=== PATIENT | male | born 1935 | race Caucasian/White ===

== ENCOUNTER → 2016-07-15 | Outpatient (CLI) | payer MEDICARE ==
[2016-07-15 13:06] LABS: CREATININE SERUM 1.7 MG/DL (0.60-1.30)
== END ==
LOC: RAD 12:35
PROVIDERS: ATTEND Internal Medicine Cardiovascular Disease
DX: I73.9 Peripheral vascular disease, unspecified (principal); M79.604 Pain in right leg; M79.605 Pain in left leg
CPT/HCPCS: 36415; 82565; 84520

== ENCOUNTER → 2016-07-21 | Outpatient (CLI) | payer MEDICARE, BC ==
[~2016-07-21] MED LIST: CATHETER FLUSH 10 ML SYR IV PRN; IOHEXOL 350 MG/ML 150 ML (OMNIPAQUE 350) VIAL IV ONE; NS 100 ML (IVPB) BAG IV ONE
[2016-07-21 11:43] LABS: CREATININE SERUM 1.48 MG/DL (0.60-1.30)
--- NOTE | 2016-07-21 14:48 | Diagnostic Imaging Report ---
INDICATION: Leg pain. History of atherosclerotic disease. Claudication symptoms. COMPARISON: None. TECHNIQUE: Noncontrast CT of the abdomen and pelvis was performed. Postcontrast CTA of the abdomen, pelvis, and bilateral lower extremities was also performed. Multiplanar and 3-D reformats were also performed and reviewed. FINDINGS: Included views of the lung bases are clear. CTA abdomen: There is moderate diffuse calcified aortic and arterial atherosclerosis. Bulky calcifications are identified at the origins of the celiac trunk and superior mesenteric artery. These, however, do not appear to be hemodynamically significant based on evaluation of the reformats. There are single renal arteries, bilaterally. Scattered bulky calcifications of the bilateral renal arteries are identified. There is bulky eccentric calcification at the origin of the left renal artery. This, however does not appear to be hemodynamically significant. There is no significant stenosis on the right. There is normal opacification of the inferior mesenteric artery. There is no evidence of dissection or focal stenosis of the aorta. There is no aneurysmal dilatation. Hyperdense material is present within the bilateral renal collecting systems on the noncontrast exam. This has the appearance of residual contrast possibly from recent study. Renal or ureteral calculi are felt to be less likely. There is a simple-appearing cyst on the right. No solid enhancing renal mass-type lesions are seen. There is no hydroureteronephrosis or other evidence of obstruction on either side. The spleen, pancreas, adrenal glands, and liver have a normal appearance. Small bowel loops are nondistended. Normal appendix cannot be adequately identified, but is reportedly surgically absent. There is no loculated fluid collection, free fluid, nor free air within the abdomen. No abnormal mesenteric or retroperitoneal adenopathy is seen. Bony structures show age-related degenerative changes, but no acute abnormalities. CTA pelvis: There is moderate calcified atherosclerotic disease of the aortic bifurcation, as well as the arteries of the pelvis. There is, however, no focal hemodynamically significant stenosis extending from the aortic bifurcation to the distal external iliac arteries, bilaterally. Prostate is moderately enlarged measuring 7.5 x 5.4 cm. Urinary bladder is unopacified. No calculi are seen within the urinary bladder. There is no loculated fluid collection, free fluid, nor free air within the pelvis. No abnormal lymph nodes are seen. Bony structures show age-related degenerative changes, but no acute abnormalities. CTA lower extremities: On the right, there appears to be at least 50% stenosis of the more proximal right common femoral artery (image 136, series 7). There also appears to be significant atherosclerotic disease of the bifurcation of the right common femoral artery (image 145, series 7). Evaluation of the lumen of the right superficial femoral artery is somewhat suboptimal given the small nature of the vessel, but there is moderate calcified arteriosclerosis with potential hemodynamically significant stenosis, anteriorly (image 169, series 7). There is opacification of the posterior tibial artery to its plantar bifurcation. There may be areas of significant stenosis, proximally. Anterior tibial and peroneal arteries are grossly unremarkable. On the left, there is probable significant focal hemodynamically significant stenosis of the distal right common femoral artery just proximal to its bifurcation (image 141, series 7). There is moderate scattered calcified atherosclerosis of the superficial femoral artery with potential significant stenosis, distally (image 222, series 7). Popliteal artery has a normal appearance. There is normal trifurcation of the popliteal artery. The posterior tibial artery is well opacified to its plantar bifurcation. The peroneal and anterior tibial arteries appear to be well opacified throughout. Osseous structures show age-related degenerative changes. No acute bony abnormalities are seen. Overlying soft tissue structures are unremarkable. IMPRESSION: 1. Moderate calcified aortic and arteriosclerosis throughout the abdomen, pelvis, and bilateral lower extremities. 2. No evidence of focal stenosis, aneurysm, nor dissection of the abdominal aorta. 3. Potential hemodynamically significant stenoses of the bilateral common femoral, bilateral superficial femoral, and right posterior tibial arteries. Further evaluation with Doppler exam or conventional angiogram is recommended. 4. Hyperdense material within the bilateral renal collecting systems on the noncontrast exam. Correlation with recent contrast-enhanced study is recommended. 5. Prostatomegaly. Dictated by: Dictated on workstation # [id number]
== END ==
LOC: RAD 11:11
PROVIDERS: ATTEND Internal Medicine Cardiovascular Disease
DX: I77.1 Stricture of artery (principal); I70.0 Atherosclerosis of aorta; N40.0 Benign prostatic hyperplasia without lower urinary tract symptoms; I73.89 Other specified peripheral vascular diseases
CPT/HCPCS: 36415; 75635; 82565; 84520

== ENCOUNTER → 2016-07-25 | Outpatient (CLI) | payer MEDICARE, BC ==
--- NOTE | 2016-07-26 14:32 | ECHOCARDIOGRAPHY REPORT ---
DATE OF SERVICE: 07/25/2016 TWO DIMENSIONAL ECHOCARDIOGRAM MEASUREMENT: LVID end diastolic 3.4. IVS thickness 1.2. LVPW thickness 1.1. Left atrial diameter 3.1. Ejection fraction 60%. FINDINGS: 1. Technical quality is good. 2. The left ventricle is normal in size with normal contractility, systolic function appeared to be normal, estimated ejection fraction 60%. 3. The left atrium is normal in size. No clot or thrombus were seen within the left atrium. 4. The right atrium and right ventricle are normal in size. No clot or thrombus were seen within the right side. 5. Mitral valve is normal in morphology with mild mitral regurgitation noted by color Doppler flow. No mitral valve prolapse. No mitral valve stenosis. 6. Aortic valve is heavily calcified, still opening and closing normally, Doppler across the aortic valve estimated the peak gradient of 7 mmHg, mean gradient of 5 mmHg. No significant aortic valve stenosis or regurgitation was seen. 7. Tricuspid valve is normal in morphology with mild tricuspid regurgitation noted by color Doppler flow. Doppler across the tricuspid valve estimated pulmonary artery pressure of 7+ right atrial pressure. 8. Pulmonic valve is functioning normally. 9. No pericardial effusion. CONCLUSION: 1. Normal left ventricular size and systolic function. Estimated ejection fraction 60%. 2. Mild mitral and tricuspid regurgitation. 3. Heavily calcified aortic valve with aortic valve sclerosis, no aortic stenosis. 4. Estimated pulmonary artery pressure of 15 mmHg. Job ID: [id number] DocumentID: [id number] Dictated Date: 07/26/2016 10:21:28 End Touching Machine Operator Date: 07/26/2016 10:59:41 Dictated By: ELIA SCHROEDER MD
== END ==
LOC: CARD 13:11 → EDUNIT# 14:00
PROVIDERS: ATTEND Internal Medicine Cardiovascular Disease
DX: I73.9 Peripheral vascular disease, unspecified (principal); Z82.49 Family history of ischemic heart disease and other diseases of the circulatory system; E78.2 Mixed hyperlipidemia; E66.9 Obesity, unspecified; I08.3 Combined rheumatic disorders of mitral, aortic and tricuspid valves
CPT/HCPCS: 93306

== ENCOUNTER → 2016-08-08 | Outpatient (CLI) | payer MEDICARE, BC ==
[~2016-08-08] MED LIST changes: -IOHEXOL 350 MG/ML 150 ML (OMNIPAQUE 350) VIAL IV ONE; -NS 100 ML (IVPB) BAG IV ONE
[2016-08-08 08:00] VITALS: BP 186/53
[2016-08-08 08:03] VITALS: BP 177/60
[2016-08-08 08:05] VITALS: BP 199/57
[2016-08-08 08:10] VITALS: BP 159/61
--- NOTE | 2016-08-09 10:29 | STRESS TEST ---
DATE OF SERVICE: 08/08/2016 EXERCISE MYOVIEW STRESS TEST REPORT REFERRING PHYSICIAN: There is no local physician. Baseline heart rate is 66. Baseline blood pressure 153/67. Baseline EKG is sinus rhythm with no ischemic changes. SUMMARY: The patient was injected with 10.38 mCi of technetium-99 Myoview and the resting images were obtained. Then, he started exercising with the baseline heart rate, blood pressure and EKG mentioned above. At minute 5, the patient was injected with 31.0 mCi of technetium-99 Myoview. The patient was able to finish a total of 6 minutes on standard Keaton protocol, achieving maximum heart rate of 136 which is 98% of maximum expected heart rate. With peak exercise level blood pressure was 203/50. EKG was showing minimal undiagnostic changes. During recovery, heart rate and blood pressure returned to baseline. EKG returned to baseline. The resting and stress images were reviewed and compared in the short axis, horizontal long axis, and vertical long axis views. Review of the images showed diaphragmatic attenuation with no significant ischemia or infarction on SPECT images. SSS is 5, SDS is 5, TID value 0.91. On the gated images, the left ventricle appeared to be in normal size with normal contractility. Calculated ejection fraction 68%. CONCLUSION: 1. Fair exercise tolerance. A total of 6 minutes on standard Keaton protocol, total of 7 METS achieving 98% of maximum expected heart rate. 2. Hypertensive response to exercise, returned to baseline during recovery. 3. Minimal nondiagnostic EKG changes with exercise returned to baseline during recovery. 4. Diaphragmatic attenuation with typical male pattern. No significant ischemia or infarction on SPECT images. 5. Normal left ventricular size with normal contractility. Calculated ejection fraction is 68%. Job ID: [id number] DocumentID: [id number] Dictated Date: 08/08/2016 11:23:10 Gold Leaf Laborer Date: 08/08/2016 14:29:58 Dictated By: ELIA SCHROEDER MD
== END ==
LOC: CARD 06:44 → EDUNIT# 08-20 09:45
PROVIDERS: ATTEND Internal Medicine Cardiovascular Disease
DX: I73.9 Peripheral vascular disease, unspecified (principal); E78.2 Mixed hyperlipidemia; E66.9 Obesity, unspecified; Z82.49 Family history of ischemic heart disease and other diseases of the circulatory system
CPT/HCPCS: 78452; 93017

== ENCOUNTER 2016-08-13 07:52 | Day surgery (SDC) | payer MEDICARE, BC ==
[~2016-08-13] VITALS: Ht 177.8 cm; Wt 91.6 kg
[2016-08-13] VITALS (14 sets, daily range): BP systolic 125–170; BP diastolic 51–79
[2016-08-13] MEDS ORDERED: HEParin (CATH LAB) 2,000 ML IV ONE (07:56)
[2016-08-13] MEDS ORDERED: NS IV 1000 ML 1,000 ML ONE (07:56)
--- OUTSIDE RECORDS SUMMARY | 2016-08-13 07:57 | XMS REPORT ---
Demographics Preferred Language Greenlandic Marital Status Never Church Affiliation Unknown Race Other Race Ethnic Group Unknown Author Author Linda Guillermo [facility] Address [address] [place], [place] [id number] Care Team Providers Care Promotions Officer Name Role Phone Linda Guillermo PCP Unavailable Allergies and Adverse Reactions Name Reaction Notes No known drug allergy Plan of Treatment Planned Activity Comments Planned Date Planned Time Plan/Goal Culture + susceptibility 07/03/2016 12:00 AM Medications Active Name Start Date Estimated Completion Date SIG Comments sertraline 25 mg oral tablet take 1 tablet (25 mg) by oral route once daily rosuvastatin 20 mg oral tablet take 1 tablet (20 mg) by oral route once daily metoprolol tartrate oral Takes half a tab in the morning and half a tab in the evening losartan 50 mg oral tablet take 1 tablet (50 mg) by oral route once daily Problem List Not available. Vital Signs Date Time BP-Sys(mm[Hg] BP-Brielle(mm[Hg]) HR(bpm) RR(rpm) Temp WT HT HC BMI BSA BMI Percentile O2 Sat(%) 07/03/2016 8:43:00 AM 150 mmHg 68 mmHg 55 bpm 18 rpm 97.9 F 210 lbs 70 in 30.13 kg/m2 2.17 m2 97 % Social History Name Description Comments Tobacco Former smoker Alcohol Use - Rare Caffeine Current every day Active but no formal exercise History of Procedures Not available. Results Summary Not available. History Of Immunizations Not available. History of Past Illness Name Date of Onset Comments Urinary dribbling Jul 03 2016 8:51AM Urinary urgency Jul 03 2016 8:51AM Payers Not available. History of Encounters Visit Date Visit Type Provider 07/03/2016 Office visit Linda Guillermo MD
--- OUTSIDE RECORDS SUMMARY | 2016-08-13 07:57 | XMS REPORT | Continuity of Care Document ---
Author Author [facility] Organization [facility] Address Unknown Phone Unavailable Allergies Medications Problems Procedures Results Encounters ACCT No. Visit Date/Time Discharge Status Pt. Type Provider Facility Loc./Unit Complaint [id number] 07/01/2016 08:48:02 ACT Unknown
--- OUTSIDE RECORDS SUMMARY | 2016-08-13 07:57 | XMS REPORT ---
Author Author Linda Guillermo Organization [facility] Address [address] [place], [place] [phone] Care Team Providers Care Forensic Specialist Name Role Phone Linda Guillermo PCP Unavailable Allergies and Adverse Reactions Name Reaction Notes No known drug allergy Plan of Treatment Not available. Medications Active Name Start Date Estimated Completion [...] (50 mg) by oral route once daily Bactrim DS 800-160 mg oral tablet 07/07/2016 08/13/2016 Take 1 tab PO BID x 7days and then one tab PO QD after a supper for 30 days Problem List Not available. Vital Signs Date [...] but no formal exercise History of Procedures Date Ordered Description Order Status 07/03/2016 12:00 AM MICROBIOLOGY PROCEDURE Reviewed Results Summary Not available. History Of Immunizations Not available. History of Past Illness Name Date of Onset Comments Urinary dribbling Jul 03 2016 8:51AM Urinary urgency Jul 03 2016 8:51AM Payers Insurance Name Company Name Plan Name Plan Number Policy Number Policy Group Number Start Date Medicare Part B Medicare [facility] [id number] N/A BCBS Bcbs [facility] [id number] N/A History of Encounters Visit Date Visit Type Provider 07/03/2016 Office visit Linda Guillermo MD
--- OUTSIDE RECORDS SUMMARY | 2016-08-13 07:57 | XMS REPORT | Clinical Summary ---
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 Nirav Poe MD Peripheral vascular disease, unspecified Medication List Medication Instructions Start Date Stop Date Generic Name NDC Status Provider Patient Instruction ADULT ASPIRIN EC LOW STRENGTH 81 MG ORAL TBEC 1 daily ASPIRIN 27943096454 Active Naima Nguyen, RMA Active LOSARTAN POTASSIUM 50 MG ORAL TABS 1 daily LOSARTAN POTASSIUM 77743794199 Active Naima Nguyen, RMA Active SERTRALINE HCL 25 MG ORAL TABS 1 daily SERTRALINE HCL 12791274241 Active Naima Nguyen RMA Active FLOMAX 0.4 MG ORAL CAPS 1 daily TAMSULOSIN HCL 00211327858 Active Naima Nguyen, RMA Active METOPROLOL TARTRATE 25 MG ORAL TABS 1/2 tab bid METOPROLOL TARTRATE 64369754218 Active Naima Nguyen, RMA Active CRESTOR 20 MG ORAL TABS 1 daily ROSUVASTATIN CALCIUM 00791529736 Active Naima Nguyen, RMA Active Vital Signs Date Name Value Unit Range Description blood pressure, diastolic - 8462-4 60 mm[Hg] BP guerrero blood pressure, systolic - 8480-6 134 mm[Hg] BP sys height E&M - 8302-2 70 [in_us] Bdy height pulse rate E&M - 8867-4 60 /min Heart rate temperature E&M 97.3 [degF] Body temperature weight E&M - 3141-9 213 [lb_av] Weight Measured Encounters Code Encounter Date Provider Facility [id number] Level 3 New Patient 15:39:51 CDT Nirav Poe MD [facility]
--- OUTSIDE RECORDS SUMMARY | 2016-08-13 07:57 | XMS REPORT ---
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 Bacterial urinary infection Active 08/04/2016 Vital Signs Date Time BP-Sys(mm[Hg] BP-Brielle(mm[Hg]) HR(bpm) RR(rpm) Temp WT HT HC BMI BSA BMI Percentile O2 Sat(%) 07/31/2016 6:57:00 AM 128 mmHg 62 mmHg 52 bpm 18 rpm 97.6 F 206 lbs 70 in 29.56 kg/m2 2.15 m2 98 % 07/03/2016 8:43:00 AM 150 mmHg 68 mmHg 55 bpm 18 rpm 97.9 F 210 lbs 70 in 30.1316 kg/m 2.169 m 97 % Social History Name Description Comments Tobacco Former smoker Alcohol Use - Rare Caffeine Current every day Active but no formal exercise History of Procedures Date Ordered Description Order Status 07/03/2016 12:00 AM MICROBIOLOGY PROCEDURE Reviewed Results Summary Not available. History Of Immunizations Not available. History of Past Illness Name Date of Onset Comments Retention of urine 08/04/2016 Adenofibromatous hypertrophy of prostate 08/04/2016 Bacterial urinary infection 08/04/2016 Urinary dribbling Jul 03 2016 8:51AM Urinary urgency Jul 03 2016 8:51AM Hematuria Jul 31 2016 3:26PM Urinary tract infection, site not specified Aug 04 2016 12:40PM Adenofibromatous hypertrophy of prostate Aug 04 2016 12:40PM Retention of urine Aug 04 2016 12:40PM Payers Insurance Name Company Name Plan Name Plan Number Policy Number Policy Group Number Start Date Medicare Part B Medicare Of [place] [id number] N/A BCBS Bcbs [facility] [id number] N/A History of Encounters Visit Date Visit Type Provider 07/31/2016 Office visit V Pedro Guillermo MD 07/03/2016 Office visit V Pedro Guillermo MD
--- OUTSIDE RECORDS SUMMARY | 2016-08-13 07:57 | XMS REPORT ---
Author Author Linda Guillermo Organization [facility] Address [address] [place], [place] [phone] Care Team Providers Care Network Lead Name Role Phone Linda Guillermo PCP Unavailable [...] Number Start Date Medicare Part B Medicare [facility] [id number] N/A BCBS Bcbs [facility] [id number] N/A History of Encounters Visit Date Visit Type Provider 07/03/2016 Office visit Linda Guillermo MD
--- OUTSIDE RECORDS SUMMARY | 2016-08-13 07:58 | XMS REPORT ---
Author Author Linda Guillermo Organization [facility] Address [address] [place], [place] [phone] Care Team Providers Care Brass Finisher Name Role Phone Linda Guillermo PCP Unavailable [...] Date Medicare Part B Medicare Of [place] [id number] N/A BCBS Bcbs [facility] [id number] N/A History of Encounters Visit Date Visit Type Provider 07/31/2016 Office visit V Pedro Guillermo MD 07/03/2016 Office visit V Pedro Guillermo MD
--- OUTSIDE RECORDS SUMMARY | 2016-08-13 07:58 | XMS REPORT ---
Author Author Linda Guillermo Organization [facility] Address [address] [facility] [address] [place], [place] [phone] Care Team Providers Care Livestock Brands Inspector Name Role Phone Linda Guillermo PCP Unavailable [...] 2016 8:51AM Hematuria Jul 31 2016 3:26PM Payers Insurance Name Company Name Plan Name Plan Number Policy Number Policy Group Number Start Date Medicare Part B Medicare Of [place] [id number] N/A [facility] [id number] N/A History of Encounters Visit Date Visit Type Provider 07/31/2016 Office visit V Pedro Guillermo MD 07/03/2016 Office visit V Pedro Guillermo MD
[2016-08-13] MEDS ORDERED: NS IV 1000 ML 1,000 ML IV SCH (08:03)
[2016-08-13 08:31] LABS: MEAN PLATELET VOLUME 10.6 FL (7.4-10.4); RED BLOOD COUNT 4.45 10^6/uL (4.35-5.85); RED CELL DISTRIBUTION WIDTH 12.6 % (10.0-14.5); WHITE BLOOD COUNT 5.6 10^3/uL (4.3-11.0)
[2016-08-13 08:35] LABS: BILIRUBIN,URINE NEGATIVE (NEGATIVE); KETONES,URINE NEGATIVE (NEGATIVE); LEUKOCYTE ESTERASE ,URINE NEGATIVE (NEGATIVE); NITRITE,URINE NEGATIVE (NEGATIVE); PH,URINE 6 (5-9); PROTEIN,URINE NEGATIVE (NEGATIVE); UROBILINOGEN,URINE 1 MG/DL (NORMAL)
[2016-08-13 08:42] LABS: SQUAMOUS EPITHELIAL CELL,UR RARE /HPF; WBC,URINE RARE /HPF
--- NOTE | 2016-08-13 08:46 | Diagnostic Imaging Report ---
INDICATION: Peripheral vascular disease and hypertension. Frontal chest obtained at 8:33 a.m. FINDINGS: Heart and mediastinal silhouette are normal in appearance. The lungs are clear. There is no pneumothorax or pleural fluid. IMPRESSION: Negative chest. Dictated by: Dictated on workstation # [id number]
[2016-08-13 08:51] LABS: ALBUMIN 4.4 GM/DL (3.2-4.5); BILIRUBIN,TOTAL 0.7 MG/DL (0.1-1.0); CALCIUM 9.7 MG/DL (8.5-10.1); CREATININE SERUM 1.44 MG/DL (0.60-1.30); POTASSIUM 4.2 MMOL/L (3.6-5.0)
[2016-08-13] MEDS ORDERED: OMG1KC PO (09:27)
[2016-08-13] MEDS ORDERED: ROSU20TA PO (09:27)
[2016-08-13] MEDS ORDERED: ASPI-983 PO (09:27)
[2016-08-13] MEDS ORDERED: UBID200C16 PO (09:27)
[2016-08-13] MEDS ORDERED: METO-333 PO (09:27)
[2016-08-13] MEDS ORDERED: TAMS0.4C98 PO (09:27)
[2016-08-13] MEDS ORDERED: LOSA100T28 PO (09:27)
[2016-08-13] MEDS ORDERED: SERT50TA9 PO (09:27)
--- NOTE | 2016-08-13 09:52 | Cardiac Procedure Note-CS/ASA ---
Pre-Procedure Note Pre-Op Procedure Note H&P Reviewed The H&P was reviewed, patient examined and no changes noted. Date H&P Reviewed: Aug 13, 2016 Time H&P Reviewed: 09:51 Conscious Sedation Pre-Proced Time Reviewed: 09:51 ASA Class: 3 Airway Mallampati Classification: (bois forte appropriate class) I. II. III, IV Lungs Heart ASA score ASA 1: a normal healthy patient ASA 2: a patient with a mild systemic disease (mid diabetes, controlled hypertension, obesity x ASA 3: a patient with a severe systemic disease that limits activity (angina , COPD, prior Myocardial infarction) ASA 4: a patient with an incapacitating disease that is a constant threat to life (CHF, renal failure) ASA 5: a moribund patient not expected to survive 24 hrs. (ruptured aneurysm) ASA 6: a declared brain patient whose organs are being harvested. For emergent operations, add the letter E after the classification Grade 3 Sedation Plan: Analgesia, Amnesia, Plan communicated to team members, Discussed options with patient/fam, Discussed risks with patient/fam Note The patient is an appropriate candidate to undergo the planned procedure, sedation, and anesthesia. The patient immediately re-assessed prior to indication. ELIA SCHROEDER MD Aug 13, 2016 09:52
[2016-08-13] MEDS ORDERED: fentaNYL INJECTION 100 MCG/2 ML AMP ONE (09:54)
[2016-08-13] MEDS ORDERED: MIDAZOLAM 5 MG/5 ML (VERSED) VIAL ONE (09:54)
[2016-08-13] MEDS ORDERED: HEParin 1000 UNIT/ML (10ML VIAL) FOR BOLUS ONE (11:05)
[2016-08-13] MEDS ORDERED: NITROGLYCERIN DRIP 25 MG/D5W 250 ML IV ONE (11:20)
[2016-08-13] MEDS ORDERED: CLOPIDOGREL 300 MG (PLAVIX) TABLET PO ONE (11:41)
[2016-08-13] MEDS ORDERED: ASPIRIN 325 MG (5 GR) TABLET ONE (11:41)
[2016-08-13] MEDS ORDERED: PATIENT MAY USE OWN MEDS, ALL PO SCH (11:45)
--- NOTE | 2016-08-13 11:53 | Peripheral Report ---
Peripheral Report Physician (s)/College Or [employer] Faculty Member (s) Physician ELIA SCHROEDER MD Pre-Procedure Diagnosis Pre-Procedure Diagnosis: PAD Post-Procedure Note Procedure Start Date: Aug 13, 2016 Procedure Start Time: 11:00 Name of Procedure: Peripheral angiogram Angioplasty to TERMITE RENEWAL INSPECTOR, SFA with DCB Findings/Procedure Note BRIEF HISTORY: The patient is a 80 male admitted with peripheral arterial disease PROCEDURE NOTE: after x-ray the procedure to the patient all pros and cons were explained all questions were answered patient was placed on the cardiac catheterization laboratory. 6 Luxembourgish sheath was placed in right femoral artery, angiogram was done to the lower extremities and abdominal aorta. Runoff to the right lower except he was done through the sheath, then I did 2 separate runoff below the knee to reevaluate the peripheral arterial disease in the right lower chest. Pigtail catheter advanced to the abdominal aorta and abdominal aortogram was done. Then I removed it and used rim catheter for crossover advances to inquire then advanced the rim ended runoff to the left lower rigidity to the rim. Patient had severe peripheral arterial disease, I decided to proceed with pertains intervention. 5000 units of heparin were given. Exchange this sheath into 45 mm 7 Luxembourgish sheath, advanced to the left common femoral, ratio of the stork wire and facet part in the SFA. Then angiogram was done showing subtotal occlusion of the left common femoral artery and proximal left SFA has severe disease, I advanced Lutonix 7.060, inflated at that common femoral artery up to 7.25 for 3 minutes then I advanced it to the proximal SFA and put it at gentle inflation to 7 mm, given nitroglycerin, angiogram showed excellent result, still having 20 percent common femoral artery stenosis, 20 percent proximal SFA, the mid SFA has 50 percent stenosis, severe disease below the knee. I was not able to proceed with more compact intervention due to the underlying renal insufficiency, addendum of the procedure sheath was removed after exchanging it into 7 Luxembourgish short, Mynx device deployed hemostasis achieved FINDINGS: right lower extremity: Right SFA has mild disease, trifurcation is normal, anterior tibial artery has mild disease, severe tibial artery has severe disease. There is good flow down to the foot. Left lower extremity, subtotal occlusion of the left common femoral artery, balloon angioplasty using Lutonix 7.060 mm with excellent results, 20 percent residual stenosis. Severe stenosis at the proximal SFA, I used the same balloon with gentle inflation with good results, also 20 percent residual stenosis. Mid SFA has 50 percent stenosis, treated conservatively, below the trifurcation it appear to have moderate disease at the posterior tibial artery which will be evaluated at a later point. Abdominal aortogram: Normal abdominal aorta and bifurcation, mild atherosclerotic disease at the common iliac arteries. CONCLUSIONS: 1. Subtotal occlusion at the left TERMITE RENEWAL INSPECTOR, severe disease at the proximal SFA, balloon angioplasty using Lutonix 7.060 mm with excellent results, 20 percent residual stenosis in both arteries. 2. 50 percent mid left SFA, treated conservatively will be addressed at a later point 3. Posterior tibial on the left lower extremity has moderate severe disease will be addressed at a later point to limit the exposure to contrast 4. Mild to moderate disease at the right lower extremity, severe disease at the right posterior tibial artery, treated conservatively. 5. Mild disease at the abdominal aorta DISCUSSION AND RECOMMENDATIONS: patient was started on aspirin and Plavix. I will evaluate LEYLA. Planning for repeat intervention on the left lower extremity if needed with limiting the exposure to contrast. Anesthesia Type: Conscious Sedation Estimated blood loss (mL): 25 Contrast Amount: 90, Radiation 181 mGy Post-Procedure Diagnosis Post-operative diagnosis: Peripheral arterial disease Hypertension Hyperlipidemia Claudication ELIA SCHROEDER MD Aug 13, 2016 11:53
[2016-08-13] MEDS: NS IV 1000 ML 1,000 ML IV SCH ×2 (12:52→16:32)
[2016-08-13] MEDS ORDERED: TAMSULOSIN 0.4 MG PO SCH (18:00)
[2016-08-13] MEDS ORDERED: ASPIRIN E.C. 81 MG (ECOTRIN) TAB PO SCH (21:00)
[2016-08-13] MEDS ORDERED: ROSUVASTATIN 20 MG (CRESTOR) TABLET PO SCH (21:00)
[2016-08-13] MEDS ORDERED: OMEGA 3 (FISH OIL) 1000 MG CAP PO SCH (21:00)
[2016-08-13] MEDS ORDERED: meTOprolol TARTRATE 25 MG (LOPRESSOR) TABLET PO SCH (21:00)
[2016-08-14] VITALS: BP 137/56
[2016-08-14 04:00] VITALS: BP 131/69
[2016-08-14 04:07] LABS: MEAN PLATELET VOLUME 10.5 FL (7.4-10.4); RED BLOOD COUNT 3.79 10^6/uL (4.35-5.85); RED CELL DISTRIBUTION WIDTH 12.3 % (10.0-14.5); WHITE BLOOD COUNT 4.8 10^3/uL (4.3-11.0)
[2016-08-14 04:28] LABS: ANION GAP 10 MMOL/L (5-14); BLOOD UREA NITROGEN 17 MG/DL (7-18); BUN/CREATININE RATIO 17; CALCIUM 8.8 MG/DL (8.5-10.1); CARBON DIOXIDE 20 MMOL/L (21-32); CHLORIDE 110 MMOL/L (98-107); CREATININE SERUM 1.02 MG/DL (0.60-1.30); GFR ESTIMATED > 60; GLUCOSE 91 MG/DL (70-105); POTASSIUM 4.4 MMOL/L (3.6-5.0); SODIUM 140 MMOL/L (135-145)
--- NOTE | 2016-08-14 08:03 | Short Stay Summary ---
History of Present Illness History of Present Illness Reason for visit/HPI 80 years old gentleman admitted for peripheral arterial disease, had lower extremity pain, he was scheduled for peripheral angiogram Date of Admission August 13, 2016 Date of Discharge August 14, 2016 Time Seen by Provider: 08:01 Attending Physician Elia Rose MD Admitting Physician Radha,Local Physician Consult none Allergies and Home Medications Allergies Coded Allergies: No Known Drug Allergies (Unverified , 07/21/16) Home Medications Aspirin 81 Mg Tablet.dr, 81 MG PO BID, (Reported) Clopidogrel Bisulfate 75 Mg Tablet, 75 MG PO DAILY, #90 Ref 4 Prescribed by: ELIA RSOE on 08/14/16 0804 Losartan Potassium 100 Mg Tablet, 50 MG PO DAILY, (Reported) TAKES 1/2 (100MG) TABLET Metoprolol Tartrate 25 Mg Tablet, 12.5 MG PO BID, (Reported) TAKES 1/2 (25MG) TABLET [place] 3 Polyunsat Fatty Acids 1,000 Mg Cap, 1,000 MG PO HS, (Reported) Rosuvastatin Calcium 20 Mg Tablet, 20 MG PO DAILY, (Reported) Sertraline HCl 50 Mg Tablet, 25 MG PO DAILY, (Reported) TAKES 1/2 (50MG) TABLET Tamsulosin HCl 0.4 Mg Cap, 0.4 MG PO DAILY, (Reported) Ubidecarenone 200 Mg Capsule, 200 MG PO HS, (Reported) Past Jcuovnf-Cdwtgl-Lgodli Hx Patient Social History Marrital Status: Smoking Status: Former Smoker Type Used: Cigarettes Recent Foreign Travel: No Contact w/other who traveled: No Recent Infectious Disease Expo: No Immunizations Up To Date Date of Pneumonia Vaccine: Nov 19, 2015 Surgeries HX Surgeries: Yes Respiratory Hx Respiratory Disorders: No Cardiovascular Hx Cardiovascular Disorders: Yes Genitourinary Hx Genitourinary Disorders: No Gastrointestinal Hx Gastrointestinal Disorders: No Constitutional: other Physical Exam Vital Signs Vital Sign - Last 12Hours 08/13/16 08:37 Temp 97.1 Pulse 59 Resp 20 B/P (MAP) 170/70 Pulse Ox 99 Capillary Refill : Less Than 3 Seconds General Appearance: No Apparent Distress, WD/WN Eyes: Bilateral Eye EOMI, Bilateral Eye Normal Inspection, Bilateral Eye PERRL HEENT: PERRL/EOMI, TMs Normal, Normal ENT Inspection, Pharynx Normal Neck: Full Range of Motion, Normal Inspection, Non Tender, Supple, Carotid Bruit Respiratory: Chest Non Tender, Lungs Clear, Normal Breath Sounds, No Accessory Muscle Use, No Respiratory Distress Cardiovascular: Regular Rate, Rhythm, No Edema, No Gallop, No JVD, No Murmur, Normal Peripheral Pulses Gastrointestinal: Normal Bowel Sounds, No Organomegaly, No Pulsatile Mass, Non Tender, Soft Back: Normal Inspection, No CVA Tenderness, No Vertebral Tenderness Extremity: Normal Capillary Refill, Normal Inspection, Normal Range of Motion, Non Tender, No Calf Tenderness, No Pedal Edema Neurologic/Psychiatric: Alert, Oriented x3, No Motor/Sensory Deficits, Normal Mood/Affect Skin: Normal Color, Warm/Dry Lymphatic: No Adenopathy Short Stay Diagnosis Discharge Diagnosis-Short Stay Admission Diagnosis: peripheral arterial disease Claudication Hypertension Hyperlipidemia Final Discharge Diagnosis: peripheral arterial disease Claudication Hypertension Hyperlipidemia Conclusion Labs Laboratory Tests 08/13/16 08:20: White Blood Count 5.6, Red Blood Count 4.45, Hemoglobin 13.7, Hematocrit 41, Mean Corpuscular Volume 91, Mean Corpuscular Hemoglobin 31, Mean Corpuscular Hemoglobin Concent 34, Red Cell Distribution Width 12.6, Platelet Count 170, Mean Platelet Volume 10.6H, Prothrombin Time 13.0, INR Comment 1.0, Activated Partial Thromboplast Time 30, Urine Color YELLOW, Urine Clarity CLEAR, Urine pH 6, Urine Specific [place] 1.015L, Urine Protein NEGATIVE, Urine Glucose (UA) NEGATIVE, Urine Ketones NEGATIVE, Urine Nitrite NEGATIVE, Urine Bilirubin NEGATIVE, Urine Urobilinogen 1, Urine Leukocyte Esterase NEGATIVE, Urine RBC ( Auto) NEGATIVE, Urine RBC RARE, Urine WBC RARE, Urine Squamous Epithelial Cells RARE, Urine Crystals NONE, Urine Bacteria NEGATIVE, Urine Casts NONE, Urine Mucus NEGATIVE, Urine Culture Indicated NO, Sodium Level 141, Potassium Level 4.2, Chloride Level 106, Carbon Dioxide Level 25, Anion Gap 10, Blood Urea Nitrogen 22H, Creatinine 1.44H, Estimat Glomerular Filtration Rate 47, BUN/ Creatinine Ratio 15, Glucose Level 104, Calcium Level 9.7, Total Bilirubin 0.7, Aspartate Amino Transf (AST/SGOT) 49H, Alanine Aminotransferase (ALT/SGPT) 65H, Alkaline Phosphatase 80, Total Protein 8.0, Albumin 4.4, Triglycerides Level 78 , Cholesterol Level 119, LDL Cholesterol Direct 62, VLDL Cholesterol 16, HDL Cholesterol 36L 08/14/16 03:41: White Blood Count 4.8, Red Blood Count 3.79L, Hemoglobin 11.7L, Hematocrit 34L, Mean Corpuscular Volume 90, Mean Corpuscular Hemoglobin 31, Mean Corpuscular Hemoglobin Concent 34, Red Cell Distribution Width 12.3, Platelet Count 136, Mean Platelet Volume 10.5H, Sodium Level 140, Potassium Level 4.4, Chloride Level 110H, Carbon Dioxide Level 20L, Anion Gap 10, Blood Urea Nitrogen 17, Creatinine 1.02, Estimat Glomerular Filtration Rate > 60, BUN/Creatinine Ratio 17, Glucose Level 91, Calcium Level 8.8 Conclusion/Plan Peripheral arterial disease, complex intervention as described below: 1. Subtotal occlusion at the left SYSTEMS ACCOUNTANT, severe disease at the proximal SFA, balloon angioplasty using Lutonix 7.060 mm with excellent results, 20 percent residual stenosis in both arteries. 2. 50 percent mid left SFA, treated conservatively will be addressed at a later point 3. Posterior tibial on the left lower extremity has moderate severe disease will be addressed at a later point to limit the exposure to contrast 4. Mild to moderate disease at the right lower extremity, severe disease at the right posterior tibial artery, treated conservatively. 5. Mild disease at the abdominal aorta I will continue on current medication, start aspirin and Plavix again. Monitor lipids, monitor blood pressure ELIA ROSE MD Aug 14, 2016 08:03
[2016-08-14] MEDS ORDERED: CLOP75TA28 PO (08:04)
--- NOTE | 2016-08-14 08:05 | Discharge Inst-Post CATH ---
Discharge Inst-CATH Post Cardiac Cath D/C Inst Follow Up/Plan Appointment with Dr. Rose's office in 2 weeks CARDIAC CATH DISCHARGE INSTRUCTIONS *Hold Metformin for 48 hours post heart cath. ACTIVITY * Go Home directly and rest. * Limit activity of the leg (or wrist if it was used) for 7 days including aerobics, swimming, jogging, bicycling, etc. * Restrict stair-climbing for 7 days if possible, if not, climb up with your non -cath leg, then bring together on the same step. * Avoid lifting, pushing, pulling or excessive movement of the affected extremity for 7 days. * Customary sexual activity may be resumed after 2 days-use caution not to use a position that strains or causes pain to the affected extremity. * No driving for 24 hours. * NO SMOKING. * Avoid straining for bowel movements for 7 days. * Gentle walking on level ground is allowed. * Returning to work will depend on the type of procedure and the results. Your doctor will discuss this with you. CALL YOUR DOCTOR FOR ANY OF THE FOLLOWING: *If bleeding from the puncture site occurs- Apply gentle pressure to site with clean cloth and call your doctor or EMS. * If a knot or lump forms under the skin, increases in size, or causes pain. * If bruising appears to be worsening or moving further down your leg instead of disappearing. * Temperature above 101 F. CARE OF YOUR GROIN INCISION; * Bruising or purple discoloration of the skin near the puncture site is common. * You may shower only, no bathtub bathing for 5 days. Be careful to avoid slipping as your leg may feel stiff. * If a closure device was used on your femoral artery, please see the attached guide regarding care of the device and your leg. * REMOVE the dressing from your groin the next day after your procedure in the shower. CARE OF YOUR WRIST INCISION; * Bruising or purple discoloration of the skin near the puncture site is common. * You may shower. * DO NOT submerge wrist. * Remove dressing in 24 hours. ELIA ROSE MD Aug 14, 2016 08:05
[2016-08-14 08:09] VITALS: BP 147/63
[2016-08-14] MEDS ORDERED: ASPIRIN E.C. 81 MG (ECOTRIN) TAB PO SCH (09:00)
[2016-08-14] MEDS ORDERED: SERTRALINE 50 MG (ZOLOFT) TABLET PO SCH (09:00)
[2016-08-14] MEDS ORDERED: CLOPIDOGREL 75 MG (PLAVIX) TABLET PO SCH (09:00)
[2016-08-14 09:25] VITALS: BP 146/58
== END 2016-08-14 09:27 | disposition home or self-care (01) ==
LOC: CATH 07:52 → ICU 12:05 → CATH 08-14 09:27
PROVIDERS: ATTEND Internal Medicine Cardiovascular Disease
DX: I70.213 Atherosclerosis of native arteries of extremities with intermittent claudication, bilateral legs (principal); I70.0 Atherosclerosis of aorta; N18.9 Chronic kidney disease, unspecified; I12.9 Hypertensive chronic kidney disease with stage 1 through stage 4 chronic kidney disease, or unspecified chronic kidney disease; I25.10 Atherosclerotic heart disease of native coronary artery without angina pectoris; E78.2 Mixed hyperlipidemia; Z79.899 Other long term (current) drug therapy; Z95.5 Presence of coronary angioplasty implant and graft
CPT/HCPCS: 36245; 36415; 37224; 71010; 75625; 75716; 80048; 80053; 80061; 81000; 85027; 85347; 85610; 85730; 87081; 93005

== ENCOUNTER 2017-09-23 08:12 | Outpatient (RCR) | payer MEDICARE, BC ==
[~2017-09-23 08:12] MED LIST changes: +ACET-2650 PO; +ASPI-983 PO; -CATHETER FLUSH 10 ML SYR IV PRN; +CLOP75TA28 PO; +CLOP75TA69 PO; +LOSA100T8 PO; +METO-333 PO; +NAPR220T66 PO; +OMG1KC PO; +ROSU20TA PO; +SERT50TA9 PO; +TAMS0.4C98 PO; +UBID200C16 PO
== END 2017-10-16 | disposition home or self-care (01) ==
LOC: CARD 08:12
PROVIDERS: ATTEND Internal Medicine Cardiovascular Disease
DX: R00.1 Bradycardia, unspecified (principal); I49.5 Sick sinus syndrome; R42 Dizziness and giddiness
CPT/HCPCS: 93225; 93226

== ENCOUNTER → 2018-12-27 | Outpatient (CLI) | payer MEDICARE, BC ==
[~2018-12-27] VITALS: Ht 178 cm; Wt 88.0 kg
[~2018-12-27] MED LIST changes: +CATHETER FLUSH 10 ML SYR IV PRN; +LOSA100T57 PO; -LOSA100T8 PO; +REGADENOSON 0.4 MG/5 ML SYR (LEXISCAN) IV ONE; -ROSU20TA PO; +ROSU20TA2 PO
[2018-12-27 09:32] VITALS: BP 132/58
--- NOTE | 2018-12-27 14:47 | STRESS TEST ---
DATE OF SERVICE: LEXISCAN MYOVIEW STRESS TEST REPORT Baseline heart rate is 54, baseline blood pressure 159/69. Baseline EKG is sinus rhythm with no ischemic changes. In summary, the patient was injected with 10.99 mCi of technetium-99 Myoview and the resting images were obtained. Then, the patient received 0.4 mg of Lexiscan followed by 29.4 mCi of technetium-99 Myoview. Throughout the test, there were no EKG changes. The resting and stress images were reviewed and compared in the short axis, horizontal long axis, and vertical long axis views. Review of the images showed good radiotracer uptake, mild decreased uptake at the mid to apical inferolateral wall, no significant ischemia or infarction was seen. SSS is 6, SDS 3, TID value 0.97. On the gated images, the left ventricle appeared to be in normal size with normal contractility. Calculated ejection fraction 71%. CONCLUSION: 1. The patient tolerated Lexiscan well. 2. Diaphragmatic attenuation with typical male pattern with no significant ischemia or infarction on SPECT images. 3. Normal left ventricular size with normal contractility. Calculated ejection fraction is 71%. Job ID: [id number] DocumentID: [id number] Dictated Date: 12/27/2018 11:50:42 Spinning Lathe Operator Automatic Date: 12/27/2018 14:46:22 Dictated By: ELIA SCHROEDER MD
== END ==
LOC: CARD 07:14
PROVIDERS: ATTEND Internal Medicine Cardiovascular Disease
DX: E78.2 Mixed hyperlipidemia (principal); I10 Essential (primary) hypertension; I25.10 Atherosclerotic heart disease of native coronary artery without angina pectoris; Z82.49 Family history of ischemic heart disease and other diseases of the circulatory system
CPT/HCPCS: 78452; 93017

== ENCOUNTER → 2020-07-06 | Outpatient (CLI) | payer MEDICARE, BC ==
[~2020-07-06] MED LIST changes: +ASPI-1238 PO; -ASPI-983 PO; -CATHETER FLUSH 10 ML SYR IV PRN; -REGADENOSON 0.4 MG/5 ML SYR (LEXISCAN) IV ONE; +SERT-413 PO; -SERT50TA9 PO; -TAMS0.4C98 PO; +TMSL.4C PO
== END ==
LOC: CARD 10:36
PROVIDERS: ATTEND Internal Medicine Cardiovascular Disease
DX: I11.9 Hypertensive heart disease without heart failure (principal); I35.0 Nonrheumatic aortic (valve) stenosis; I35.1 Nonrheumatic aortic (valve) insufficiency
CPT/HCPCS: 93306